=== PATIENT | male | born 1980 | race Caucasian/White ===

== ENCOUNTER 2016-09-05 15:33 | Emergency (ER) | payer SELFPAY ==
[2016-09-05 17:17] LABS: BASOPHILS 0.1 % (0-2); EOSINOPHILS 2.3 % (0-7); HEMOGLOBIN 13.3 g/dL (13.5-17.5); IMMATURE GRANULOCYTES 0.3 % (0-5); LYMPHOCYTES 37.5 % (15-50); MCH 28.8 pg (26.0-34.0); MCHC 33.3 g/dL (31.0-37.0); MCV 86.6 fL (80.0-100.0); MEAN PLATELET VOLUME 10.3 fL (7.4-10.4); MONOCYTES 8.3 % (2-11); NEUTROPHILS 51.5 % (40-80); PLATELET COUNT 272 10x3/uL (130-400); RBC 4.62 10x6/uL (4.20-6.10); RDW 13.3 % (11.5-14.5); WBC 7.9 10x3/uL (4.8-10.8)
[2016-09-05 17:48] LABS: APPEARANCE CLOUDY (CLEAR); BILIRUBIN NEGATIVE (NEGATIVE); COLOR YELLOW (YELLOW); GLUCOSE NEGATIVE (NEGATIVE); KETONE NEGATIVE (NEGATIVE); LEUKOCYTE ESTERASE NEGATIVE (NEGATIVE); NITRITE NEGATIVE (NEGATIVE); PROTEIN NEGATIVE (NEGATIVE); SPECIFIC GRAVITY 1.005 (1.005-1.020); UROBILINOGEN NORMAL (NORMAL)
== END 2016-09-05 18:02 | disposition home or self-care (01) ==
LOC: D.ER 15:33
PROVIDERS: Emergency Medicine
DX: R10.9 Unspecified abdominal pain (principal); F17.200 Nicotine dependence, unspecified, uncomplicated

== ENCOUNTER 2016-11-08 17:10 | Emergency (ER) | payer SELFPAY | END 2016-11-08 20:30 | disposition home or self-care (01) | LOC: D.ER 17:10 | DX: J20.9 Acute bronchitis, unspecified (principal) ==

== ENCOUNTER 2018-01-24 20:17 | Emergency (ER) | payer SELFPAY ==
[~2018-01-24] VITALS: Ht 177.8 cm; Wt 117.9 kg
[2018-01-24 20:26] VITALS: Ht 177.8 cm; Wt 117.9 kg
[2018-01-24 21:19] VITALS: BP 146/86
== END 2018-01-24 21:15 | disposition home or self-care (01) ==
LOC: D.ER 20:17
DX: M67.432 Ganglion, left wrist (principal)